=== PATIENT | female | born 1955 | race Caucasian/White ===

== ENCOUNTER 2022-04-08 10:00 | Day surgery (SDC) | payer MEDICARE, BC, SELFPAY ==
[2022-04-08 10:52] VITALS: BMI 26.9
[2022-04-08 11:01] VITALS: BP 134/80; PULSE 60; RESP 16; TEMP 36.6; O2SAT 99
[2022-04-08] MEDS: SODIUM CHLORIDE 0.9 % (FLUSH) 10 ML SYRINGE IVF (11:03)
[2022-04-08] MEDS: LACTATED RINGERS 1000 ML 1,000 ML 100 ML IV (11:04)
[2022-04-08 11:09] LABS: Hemoglobin* 13.7 gm/dL (12.0-16.0)
--- NOTE | 2022-04-08 11:12 | SUR.PREOP ---
Negative covid antigen test done at home on 04/07/22 and shown to nurse.
[2022-04-08] MEDS: BUPIVACAINE 0.5% 30 ML INJECTION (11:32)
[2022-04-08 11:50] VITALS: BP 112/74; PULSE 61; RESP 16; TEMP 36.4; O2SAT 94
--- NOTE | 2022-04-08 11:55 | W.ANESCHARGE ---
Anesthesia Charges Start Date/Time Anesthesia Start Date: 04/08/22 Anesthesia Start Time: 11:11 Stop Date/Time Anesthesia Stop Date: 04/08/22 Anesthesia Stop Time: 11:56 Summary Emergency: No
[2022-04-08 12:00] VITALS: BP 118/68; PULSE 56; RESP 16; O2SAT 95
--- NOTE | 2022-04-08 12:00 | P.GYNPRC_ITS ---
Procedure Note Date Seen: 04/08/22 Procedure Details: Preop diagnosis: Postmenopausal bleeding Postop diagnosis: Postmenopausal bleeding, fibroid uterus Name of procedure: Hysteroscopy, dilation and curettage Surgeon: Shayy Christensen MD Director Commercial Sales: None Complications: None EBL: 5mL Drains: None Findings: Bimanual exam: Small antevereted uterus of about 6-7cm, regular contour, no adnexal masses. Intrauterine cavity: Anterior uterine wall with fibroid, bilateral cornual openings seen, grossly background atrophic endometrium. Patient was taken to the OR were MAC anesthesia was administered without difficulty. She was placed in the dorsal lithotomy position with Nahid type stirrups. An exam under anesthesia as described above. Patient was then prepared and draped in the normal sterile fashion. A bivalved speculum was inserted in the posterior aspect of the vagina. 0.5% Marcaine was injected at 2 and 11 o'clock a total of about 5mL utilized. A single-tooth tenaculum was used to grasp the anterior lip of the cervix. The uterus was carefully sounded to 6 cm. The cervical os was sequentially dilated to accommodate the 5 mm TrueClear hysteroscope using Hegar dilators. A 5 mm 30 degree TrueClear hysteroscope was introduced under direct visualization, and the uterus was distended with normal saline. Findings as above. Soft tissue incisor blade from TrueClear hysteroscope system was introduced under direct visualization and endometrial curettings performed.. Hysteroscope removed under direct visualization. A small curette introduced to further sample the cavity in all 4 quadrants until gritty feeling. Samples sent to pathology. Tenaculum was removed from the cervix and good hemostasis was noted at puncture sites. Patient tolerated the procedure well. Instrument and sponge counts were correct x2. The patient was awakened from MAC anesthesia and taken to the recovery room in a stable condition. The patient will go home after recovering from anesthesia and meeting all the criteria for discharge. She was given instruction regarding follow-up visit in 2 weeks at [facility] and instructions for pain medication. Fluid deficit: 215mL
[2022-04-08 12:15] VITALS: BP 124/75; PULSE 61; RESP 16; TEMP 36.3; O2SAT 97
[2022-04-08 12:30] VITALS: BP 109/69; PULSE 53; RESP 16; TEMP 36.6; O2SAT 99
--- NOTE | 2022-04-08 12:39 | W.ANESCHARGE ---
Anesthesia Charges Start Date/Time Anesthesia Start Date: 04/08/22 Anesthesia Start Time: 11:11 Stop Date/Time Anesthesia Stop Date: 04/08/22 Anesthesia Stop Time: 11:56 Summary Emergency: No
== END 2022-04-08 12:55 | disposition home or self-care (01) ==
PROVIDERS: PCP Family Medicine; Visit Provider Obstetrics & Gynecology
PROC: 0UDB8ZZ Extraction of Endometrium, Via Natural or Artificial Opening Endoscopic (ICD-10-PCS; CPT 58558; principal; 2022-04-08 11:15)
DX: N95.0 Postmenopausal bleeding (principal); N84.0 Polyp of corpus uteri
CPT/HCPCS: 58558; 36415; 85018; 88305; 952; J1100; J2250; J2405; J2704; J3010; J3490; J7120